=== PATIENT | male | born 1970 | race Caucasian/White ===

== ENCOUNTER 2017-02-11 22:18 | Emergency (ER) | payer OTHER ==
[~2017-02-11] VITALS: Ht 180.3 cm; Wt 117.9 kg
[~2017-02-11 22:18] MED LIST: FLEXERIL PO
[2017-02-11] MEDS ORDERED: NO MEDICATIONS (22:40)
== END 2017-02-12 00:56 | disposition home or self-care (01) ==
LOC: SED 22:18
DX: L02.11 Cutaneous abscess of neck (principal); F17.200 Nicotine dependence, unspecified, uncomplicated; Z88.0 Allergy status to penicillin
CPT/HCPCS: 10060; 87070; 87205; 99283